=== PATIENT | male | born 1985 | race Caucasian/White ===

== ENCOUNTER 2017-05-07 18:09 | Emergency (ER) | payer OTHER ==
[~2017-05-07] VITALS: Ht 177.8 cm; Wt 131.5 kg
[~2017-05-07 18:09] MED LIST: BLOOD PRESSURE; CHOLESTEROL MED; CIPRO500 MG PO; COLACE100 MG PO; FLAGYL500 MG PO; HYDROCHLOROTHIAZIDE PO; HYDROCODONE-AP1 EAC6 PO; LIPITOR 20 MG T20 M1 PO; LORATIDINE 10 M10 M1 PO; LOSARTAN PO; TYLENOL325 MG PO
[2017-05-07] MEDS ORDERED: SINGULAIR 10 MG10 M1 PO (18:37)
[2017-05-07] MEDS ORDERED: LOSARTAN-HCTZ1 EAC2 PO (18:38)
[2017-05-07] MEDS ORDERED: MED FOR GERD PO (18:39)
[2017-05-07] MEDS ORDERED: ACETAMINOPHEN-1 EAC1 PO (18:51)
[2017-05-07] MEDS ORDERED: AUGMENTIN 875-1 EACH PO (18:51)
[2017-05-07 19:30] VITALS: BP 141/70
== END 2017-05-07 19:30 | disposition home or self-care (01) ==
LOC: M.ERS 18:09
DX: S61.452A Open bite of left hand, initial encounter (principal); I10 Essential (primary) hypertension; E78.00 Pure hypercholesterolemia, unspecified; Z86.14 Personal history of Methicillin resistant Staphylococcus aureus infection; W54.0XXA Bitten by dog, initial encounter; Y93.89 Activity, other specified; Y92.89 Other specified places as the place of occurrence of the external cause; Y99.8 Other external cause status